=== PATIENT | male | born 1970 | race African-American/Black ===

== ENCOUNTER → 2022-09-24 | Day surgery (SDC) | payer OTHER ==
[~2022-09-24] MED LIST: ARNUITY EL50 MCG/ACT; BENADRYL ALLERG25 MG PO; CLONIDINE0.1 MG PO; DIPHENHYDRAM50 M2 PO; LORATADINE10 M3; NORVASC10 M1 PO; TEGRETOL S PO; TEGRETOL200 MG PO
== END | disposition home or self-care (01) | DRG 951 ==
LOC: ORM 08:00
PROVIDERS: ATTEND Surgery
DX: Z53.9 Procedure and treatment not carried out, unspecified reason (principal)
CPT/HCPCS: J0690

== ENCOUNTER 2023-02-11 07:01 | Day surgery (SDC) | payer OTHER ==
[~2023-02-11] VITALS: Ht 172.7 cm; Wt 84.8 kg
[~2023-02-11 07:01] MED LIST changes: +CLARITIN10 M1 PO
[2023-02-11] MEDS ORDERED: LORTAB 5/3255 MG PO (10:17)
[2023-02-11 11:36] VITALS: BP 126/60
== END 2023-02-11 12:10 | disposition designated cancer center or children's hospital (05) | DRG 352 ==
LOC: ORM 07:01
PROVIDERS: ATTEND Surgery
PROC: 0YU60JZ Supplement Left Inguinal Region with Synthetic Substitute, Open Approach (ICD-10-PCS; principal; 2023-02-11)
PROC: 0WUF0JZ Supplement Abdominal Wall with Synthetic Substitute, Open Approach (ICD-10-PCS; 2023-02-11)
DX: K40.90 Unilateral inguinal hernia, without obstruction or gangrene, not specified as recurrent (principal); K43.9 Ventral hernia without obstruction or gangrene; I10 Essential (primary) hypertension; E78.00 Pure hypercholesterolemia, unspecified
CPT/HCPCS: C1781; C9290; J0131; J0690